=== PATIENT | female | born 1955 | race Caucasian/White ===

== ENCOUNTER 2017-06-21 16:04 | Emergency (ER) | payer OTHER ==
[~2017-06-21] VITALS: Ht 165.1 cm; Wt 86.4 kg
[2017-06-21 16:05] VITALS: TEMP 98.9
[2017-06-21] MEDS ORDERED: APRESOLINE 10MG10 MG PO (16:10)
[2017-06-21] MEDS ORDERED: NORVASC 5MG5 MG/TAB PO (16:10)
[2017-06-21] MEDS ORDERED: ZYRTEC 10MG10 MG PO (16:11)
[2017-06-21] MEDS ORDERED: PROZAC 20MG20 MG PO (16:11)
[2017-06-21] MEDS ORDERED: PRILOSEC 20MG20 MG PO (16:11)
[2017-06-21] MEDS ORDERED: ASPIRIN E.C. 8181 MG PO (16:11)
[2017-06-21] MEDS ORDERED: MOTRIN 400400 MG/TAB PO (16:12)
[2017-06-21] MEDS ORDERED: TOPROL XL 25MG25 MG PO (16:12)
[2017-06-21] MEDS ORDERED: RT ADVAIR 228 DISKUS IH (16:12)
[2017-06-21 19:17] VITALS: BP 155/83; PULSE 74
== END 2017-06-21 19:18 | disposition home or self-care (01) ==
LOC: COL.ER 16:04
DX: S52.502A Unspecified fracture of the lower end of left radius, initial encounter for closed fracture (principal); I10 Essential (primary) hypertension; J45.909 Unspecified asthma, uncomplicated; K21.9 Gastro-esophageal reflux disease without esophagitis; K58.9 Irritable bowel syndrome, unspecified; Z86.79 Personal history of other diseases of the circulatory system; Z87.442 Personal history of urinary calculi; Z79.82 Long term (current) use of aspirin; Z98.890 Other specified postprocedural states; W01.0XXA Fall on same level from slipping, tripping and stumbling without subsequent striking against object, initial encounter
CPT/HCPCS: J2704; J7030